=== PATIENT | female | born 1960 | race Caucasian/White ===

== ENCOUNTER 2017-05-08 10:32 | Emergency (ER) | payer OTHER ==
[~2017-05-08] VITALS: Ht 167.6 cm; Wt 64.9 kg
[2017-05-08 11:40] LABS: ABSOLUTE BASOPHIL COUNT 0 /CUMM (0.0-0.2); ABSOLUTE EOSINOPHIL COUNT 0.1 /CUMM (0.0-0.7); ABSOLUTE GRANULOCYTE CT 4.5 /CUMM (1.4-6.5); ABSOLUTE LYMPH COUNT 1.8 /CUMM (1.2-3.4); ABSOLUTE MONOCYTE COUNT 0.5 /CUMM (0.10-0.60); BASOPHIL % 0.6 % (0.0-2.0); EOSINOPHIL % 0.9 % (0-5); GRANULOCYTE % 64.7 % (42.2-75.2); HEMATOCRIT 40.2 % (37-47); MEAN CORPUSCULAR HGB 29.4 PG (27.0-31.0); MEAN CORPUSCULAR HGB CONC 34.4 G/DL (33.0-37.0); MEAN CORPUSCULAR VOLUME 85.3 FL (81.0-99.0); MEAN PLATELET VOLUME 8.3 FL (7.4-10.4); PLATELET COUNT 273 /CUMM (130-400); RBC DISTRIBUTION WIDTH 12.9 % (11.5-14.5); RED BLOOD CELL CT 4.72 /CUMM (4.20-5.40); WHITE BLOOD CELL COUNT 6.9 /CUMM (4.8-10.8)
--- NOTE | 2017-05-08 12:02 | ED NECK/BACK PAIN COMPLAINT ---
History of Present Illness General Chief Complaint: Low Back Pain/Injury Stated Complaint: LOWER BACK PAIN Source: patient, family, old records Exam Limitations: no limitations Vital Signs & Intake/Output Vital Signs & Intake/Output Vital Signs Date Time Temp Pulse Resp B/P B/P Pulse O2 O2 Flow FiO2 Mean Ox Delivery Rate 05/08 1421 98.3 84 18 124/74 100 Room Air 05/08 1232 98.1 80 18 137/87 100 Room Air 05/08 1038 98.0 88 15 168/99 100 Room Air Allergies Coded Allergies: No Known Allergies (05/08/17) Reconcile Medications Baclofen 10 MG TABLET 1-2 TAB PO TID PRN muscle strain Ibuprofen 600 MG TABLET 1 TAB PO Q6PRN PRN pain with food Methylprednisolone. (Medrol) 4 MG TAB.DS.PK 1 DP PO AD disc prolapse 6 on day 1 then reduce by one tablet daily until gone Oxycodone HCl/Acetaminophen (Percocet 5-325 MG Tablet) 5 MG-325 MG TABLET 1-2 TAB PO 4 TIMES/DAY PRN severe pain Triage Note: PT TO ED FOR R SIDED LOWER BACK PAIN, REPORTING SHE HAS "HAD TROUBLE 1 OR 2 TIMES A YEAR LIKE THIS BUT THIS IS REALLY BAD" TRIED ADVIL AND FLEXERIL AT HOME WITH MINIMAL RELIEF. Triage Nurses Notes Reviewed? yes Onset: Last week Duration: day(s):, constant, continues in ED Timing: recent history Quality/Severity: moderate, severe, radiation, sharpness Location: lumbar spine, paraspinous muscles Radiation: upper legs Context: lifting, sneezing Method of Injury: twisted Loss of Consciousness: no loss of consciousness Modifying Factors: immobilization, jarring, movement, pain medication Associated Symptoms: lower back pain, muscle spasm LMP (ages 10-50): post menopausal : No Patient currently breastfeeds: No HPI: 7-10 days prior to admission patient was carrying the dog up the stairs lost balance and missed a step. She developed right low back pain moderate in severity constant worse with movement turning bending radiating to right thigh. Pain improved but recurred after sneezing with worsening pain not controlled with NSAIDs Flexeril. She denies fever chills chest pain cough shortness of breath nausea vomiting diarrhea dysuria rash bleeding change involved bladder habit. Past History Travel History Traveled to [place] past 21 day No Medical History Any Pertinent Medical History? see below for history Neurological: NONE EENT: NONE Cardiovascular: NONE Respiratory: NONE Gastrointestinal: NONE Hepatic: NONE Renal: NONE Musculoskeletal: NONE Psychiatric: NONE Endocrine: NONE Blood Disorders: NONE Cancer(s): NONE Surgical History Surgical History: non-contributory Psychosocial History What is your primary language Niuean Tobacco Use: Never used ETOH Use: occasional use Illicit Drug Use: denies illicit drug use Family History Hx Contributory? No Review of Systems Review of Systems Constitutional: Reports: no symptoms. Eyes: Reports: no symptoms. Ears, Nose, Throat, Mouth: Reports: no symptoms. Respiratory: Reports: no symptoms. Cardiovascular: Reports: no symptoms. Gastrointestinal/Abdominal: Reports: no symptoms. Musculoskeletal: Reports: see HPI, back pain. Skin: Reports: no symptoms. Neurological/Psychological: Reports: no symptoms. All Other Systems: Reviewed and Negative Physical Exam Physical Exam General Appearance: well developed/nourished, mild distress Head: atraumatic, normal appearance Eyes: Bilateral: PERRL, EOMI. Ears, Nose, Throat, Mouth: hearing grossly normal, moist mucous membrane Neck: normal inspection, supple, full range of motion, normal alignment Respiratory: normal breath sounds Cardiovascular: regular rate/rhythm, normal peripheral pulses, norml femoral pulses equa Peripheral Pulses: 4+ carotid (R), 4+ carotid (L) Gastrointestinal: normal bowel sounds, soft, non-tender, no organomegaly Back: normal inspection, decreased range of motion, muscle spasm Extremities: non-tender, normal range of motion Straight Leg Raising: Right: Pain at ____ degrees (5). Left: Pain at ____ degrees (5). Sensory: Medial Le: L4R, L4L. Top of Foot: 2: L5R, L5L. Sole of Foot: 2: SIR, ANG. Motor: Deficit L4 Right: No Deficit L4 Left: No Deficit L5 Right: No Deficit L5 Left: No Deficit S1 Right: No Deficit S1 Right: No DTR: Deficit L4 Left: No Deficit L4 Right: No Deficit S1 Left: No Deficit S1 Right: No Patellar: 3: L4 Right, L4 Left. Neurologic/Psych: no motor/sensory deficits, awake, alert, oriented x 3, normal gait, normal mood/affect, [employer] combat skills II-XII nml as tested Skin: intact, normal color, warm/dry Progress Differential Diagnosis: herniated disc, myofascial strain, sciatica, spinal cord inj Plan of Care: Orders Procedure Date/time Status MAGNESIUM 05/08 1122 Complete COMPREHENSIVE METABOLIC PANEL 05/08 112 Complete CBC WITHOUT DIFFERENTIAL 05/08 112 Complete Laboratory Tests 05/08/17 1135: Anion Gap 10, Estimated GFR > 60, BUN/Creatinine Ratio 25.7 H, Glucose 87, Calcium 9.7, Magnesium 1.8, Total Bilirubin 0.3, AST 20, ALT 38, Alkaline Phosphatase 78, Total Protein 7.4, Albumin 4.6, Globulin 2.8, Albumin/Globulin Ratio 1.6, CBC w Diff NO MAN DIFF REQ, RBC 4.72, MCV 85.3, MCH 29.4, RDW 12.9, MPV 8.3, Gran % 64.7, Lymphocytes % 26.0, Monocytes % 7.8, Eosinophils % 0.9, Basophils % 0.6, Absolute Granulocytes 4.5, Absolute Lymphocytes 1.8, Absolute Monocytes 0.5, Absolute Eosinophils 0.1, Absolute Basophils 0, PUBS MCHC 34.4 Diagnostic Imaging: Viewed by Me: CT Scan. Discussed w/RAD: CT Scan. Radiology Impression: Mild spondylosis at the L3-L4 through the L5-S1 levels. At L3-L4 there is an annular disc bulge with a superimposed right lateral disc protrusion that results in mild right-sided foraminal narrowing without definite exiting nerve root compression. Departure Departure Time of Disposition: 0 Disposition: HOME OR SELF CARE Condition: Stable Clinical Impression Primary Impression: Facet arthritis of lumbar region Secondary Impressions: Disc herniation Qualifiers: Spinal region: lumbosacral Qualified Code: M51.27 - Other intervertebral disc displacement, lumbosacral region Referrals: ANURAG SHERMAN,IVON Hurt (PCP/Family) JB SHERMAN,TATIANA Ashby Call for neurosurgical follow up JESSI SHERMAN,RADHA Call for orthopedic follow up Departure Forms: Customer Survey General Discharge Information Prescriptions: Current Visit Scripts Methylprednisolone. (Medrol) 1 DP PO AD #1 DP 6 on day 1 then reduce by one tablet daily until gone Ibuprofen 1 TAB PO Q6PRN PRN pain #50 TAB with food Baclofen 1-2 TAB PO TID PRN muscle strain #30 TAB Oxycodone HCl/Acetaminophen (Percocet 5-325 MG Tablet) 1-2 TAB PO 4 TIMES/DAY PRN severe pain #20 TAB
--- NOTE | 2017-05-08 13:13 | CT SCAN REPORT ---
EXAMINATION: CT LUMBAR SPINE WITHOUT CONTRAST CLINICAL INFORMATION: Right low back pain radiating to the right upper leg. COMPARISON: None available. TECHNIQUE: Helical non-contrast CT images were obtained through the lumbar spine and 1.25 and 2.5 mm axial reconstructions were reviewed along with sagittal and coronal MPRs. FINDINGS: 5 nonrib-bearing lumbar-type vertebral bodies. No spondylolisthesis. Lumbar alignment is maintained. Vertebral body heights are preserved. Disc spaces are maintained. No acute fractures no acute subluxations. Small chronic upper endplate Schmorl's nodes at L3 and L4. Probable small enostosis within the anterior aspect of the L5 vertebral body. No suspicious intraosseous lesions. No significant soft tissue findings are identified. At L1-L2 and L2-L3 no definite disc contour abnormalities are appreciated. No appreciable central canal stenosis nor foraminal stenosis at these levels. At L3-L4 there is an annular disc bulge with a superimposed right lateral disc protrusion resulting in mild right-sided foraminal narrowing without definite exiting nerve root compression. No appreciable central canal stenosis nor left foraminal stenosis. At L4-L5 there is a diffuse annular disc bulge and there is mild bilateral facet arthropathy. No appreciable central canal stenosis nor significant foraminal stenosis. At L5-S1 there is likely a slight annular disc bulge with no central canal stenosis and no foraminal stenosis. IMPRESSION: Mild spondylosis at the L3-L4 through the L5-S1 levels. At L3-L4 there is an annular disc bulge with a superimposed right lateral disc protrusion that results in mild right-sided foraminal narrowing without definite exiting nerve root compression. Given the patient's history of radiculopathy, MRI would be more sensitive in evaluation.
[2017-05-08] MEDS ORDERED: MEDROL4 M2 PO (13:44)
[2017-05-08] MEDS ORDERED: IBUPROFEN600 M1 PO (13:44)
[2017-05-08] MEDS ORDERED: PERCOCET 5-3251 EACH PO (13:44)
[2017-05-08] MEDS ORDERED: BACLOFEN10 M1 PO (13:44)
== END 2017-05-08 14:22 ==
LOC: ERH 10:32
PROVIDERS: Emergency Medicine
DX: M47.9 Spondylosis, unspecified (principal); M51.26 Other intervertebral disc displacement, lumbar region
CPT/HCPCS: 96374; 96375; 96376; J1885; J2930; J3360